=== PATIENT | female | born 1960 ===

== ENCOUNTER 2021-07-08 21:56 | Observation (INO) | payer OTHER ==
[~2021-07-08] VITALS: Ht 170.2 cm; Wt 96.8 kg
[2021-07-08 23:16] LABS: ALBUMIN 3.8 g/dL (3.4-5.0); ANION GAP 8 mmol/L (5-15); CALCIUM 9.4 mg/dL (8.5-10.1); CHLORIDE 111 mmol/L (98-107); CREATININE 0.87 mg/dL (0.55-1.02)
[2021-07-08 23:17] LABS: BASOPHILS % (AUTO) 0 % (0-1); EOSINOPHILS % (AUTO) 1 % (1-7); LYMPHOCYTES % (AUTO) 21 % (22-44); MEAN CORPUSCULAR HEMOGLOBIN 31.5 pg (27.0-34.8); MEAN CORPUSCULAR HGB CONC 33.9 g/dL (32.4-35.8); MEAN PLATELET VOLUME 9.3 fL (7.4-10.4); MONOCYTES % (AUTO) 6 % (2-9); NEUTROPHILS % (AUTO) 71 % (42-75); PLATELET COUNT 220 x10^3/uL (130-400); RED BLOOD COUNT 4.48 x10^6/uL (3.82-5.3); RED CELL DISTRIBUTION WIDTH 13.7 % (9.6-15.2)
[2021-07-09] MEDS ORDERED: OMNIPAQUE 350 MG/ML, 100ML BOTTLE ONE
[2021-07-09 00:02] LABS: MICROSCOPIC NOT IND
[2021-07-09 00:17] LABS: AMPHETAMINE SCREEN, URINE Negative (Negative); BARBITURATE SCREEN, URINE Negative (Negative); BENZODIAZEPINE SCREEN, URINE Negative (Negative); CANNABINOID SCREEN, URINE Negative (Negative); COCAINE SCREEN, URINE Negative (Negative); METHADONE SCREEN, URINE Negative (Negative); OPIATE SCREEN, URINE Negative (Negative)
[2021-07-09] MEDS ORDERED: CALC1TAB3 PO (00:30)
[2021-07-09] MEDS ORDERED: ATOR-2 PO (00:30)
[2021-07-09] MEDS ORDERED: ALEN70TA3 PO (00:30)
[2021-07-09] MEDS ORDERED: MELATONIN 5 MG TABLET PO PRN (01:30)
[2021-07-09] MEDS ORDERED: ENOXAPARIN 40 MG/0.4 ML SQ SCH (01:30)
[2021-07-09] MEDS ORDERED: ACETAMINOPHEN 325 MG TABLET PO PRN (01:30)
[2021-07-09] MEDS ORDERED: POLYETHYLENE GLYCOL 17 GM PACKET PO PRN (01:30)
[2021-07-09] MEDS ORDERED: ONDANSETRON 2MG/ML, 2ML IVPush PRN (01:30)
--- NOTE | 2021-07-09 01:30 | NUR ---
assumed care of patient from Breanna GARCIA. Patient sitting in bed comfortably. No needs at this time
--- NOTE | 2021-07-09 02:35 | NUR ---
attempted to call report at this time to Anneliese GARCIA. RN unable to take report at this time
--- NOTE | 2021-07-09 02:40 | NUR ---
report given to suki calle
[2021-07-09 02:54] VITALS: BP 149/76
[2021-07-09] MEDS ORDERED: ASPIRIN 81 MG TABLET EC PO SCH (06:00)
[2021-07-09 08:00] VITALS: BP 131/77
[2021-07-09 08:51] LABS: BASOPHILS % (AUTO) 1 % (0-1); EOSINOPHILS % (AUTO) 2 % (1-7); LYMPHOCYTES % (AUTO) 35 % (22-44); MEAN CORPUSCULAR HGB CONC 33.6 g/dL (32.4-35.8); MEAN PLATELET VOLUME 8.9 fL (7.4-10.4); MONOCYTES % (AUTO) 10 % (2-9); NEUTROPHILS % (AUTO) 53 % (42-75); PLATELET COUNT 218 x10^3/uL (130-400); RED BLOOD COUNT 4.34 x10^6/uL (3.82-5.3); RED CELL DISTRIBUTION WIDTH 13.4 % (9.6-15.2)
[2021-07-09 09:03] LABS: ANION GAP 9 mmol/L (5-15); CALCIUM 9.4 mg/dL (8.5-10.1); CHLORIDE 112 mmol/L (98-107); CHOLESTEROL, TOTAL 194 mg/dL (140-239); CREATININE 0.63 mg/dL (0.55-1.02); TRIGLYCERIDES 78 mg/dL (50-200); VLDL CHOLESTEROL 16 mg/dL (0-25)
[2021-07-09 09:06] LABS: CHOL/HDL RATIO 3.3; HDL CHOL % 30 % (28-40); HDL CHOLESTEROL (DIRECT) 59 mg/dL (40-60); LDL CHOLESTEROL,CALCULATED 119 mg/dL (54-169)
[2021-07-09 13:58] VITALS: BP 112/74
[2021-07-09] MEDS ORDERED: ASPI81TA45 PO (16:55)
== END 2021-07-09 17:57 | disposition home or self-care (01) ==
LOC: ED 23:00 → EDIP 07-09 00:24 → INTOOBSV 07-09 00:24 → ED 07-09 01:08 → 4EST 07-09 02:52
PROVIDERS: ADMIT Internal Medicine; ATTEND Hospitalist
DX: G45.4 Transient global amnesia (principal); R00.2 Palpitations; E78.5 Hyperlipidemia, unspecified; M85.80 Other specified disorders of bone density and structure, unspecified site; E78.00 Pure hypercholesterolemia, unspecified; Z87.891 Personal history of nicotine dependence; Z79.899 Other long term (current) drug therapy
CPT/HCPCS: 36415; 70450; 70496; 70498; 70551; 80048; 80061; 80307; 80320; 81003; 82040; 82140; 82962; 83036; 85025; 93005; 93306; 96372; 99285; G0378; J1650; Q9967; G0480